=== PATIENT | male | born 1990 | race Caucasian/White ===

== ENCOUNTER 2018-05-01 16:53 | Emergency (ER) | payer SELFPAY ==
[2018-05-01 17:08] VITALS: BP 151/94; PULSE 84; RESP 16; TEMP 36.5; O2SAT 98
[2018-05-01] MEDS: Benzonatate 100 MG CAP PO (17:51)
[2018-05-01] MEDS: Albuterol/Ipratropium 3 ML UPD VIAL UPD (17:51)
--- NOTE | 2018-05-01 18:10 | NUR.NOTE ---
Nursing Note: Meds given as ordered, no acute resp distress. off unit at this time for CXR. will continue to monitor.
--- NOTE | 2018-05-01 18:12 | DI.RAD_ITS ---
SYMPTOM/DIAGNOSIS: COUGH, FEVER PA AND LATERAL CHEST: The heart is normal in size. The lungs are clear. The mediastinal structures and pleura appear intact. CONCLUSION: Normal chest.
--- NOTE | 2018-05-01 18:23 | DI.VRAD_ITS ---
EXAM: XR Chest, 2 Views EXAM DATE/TIME: 05/01/2018 5:44 PM CLINICAL HISTORY: 27 years old, male; Signs and symptoms; Cough and fever and shortness of breath; Patient HX: Productive cough, fever, and SOB x7 days. TECHNIQUE: XR of the chest, 2 views. COMPARISON: No relevant prior studies available. FINDINGS: Lungs: Unremarkable. No consolidation. Pleural space: Unremarkable. No pleural effusion. No pneumothorax. Heart/Mediastinum: Unremarkable. No cardiomegaly. Bones/joints: Unremarkable. IMPRESSION: No acute findings. Dictated and Authenticated by: Guerrero Roth MD. Ordering:ROBERT Goodman MD
--- NOTE | 2018-05-01 18:51 | W.ED.GENAD ---
Discharge Plan Disposition Patient Disposition: HOME Condition: Stable Discharge Details Chief Complaint: RespSymp Clinical Impression: Influenza, Pneumonia Primary Care Provider: None,None ED Provider: Rex Jimenez Home Meds and New Rx's Prescriptions: New benzonatate 200 mg capsule 200 mg PO TID PRN (Reason: cough) Qty: 30 RF: 0 doxycycline hyclate 100 mg tablet 100 mg PO BID Qty: 14 RF: 0 Discharge Instructions Instructions: Influenza (ED), Pneumonia (ED) Additional Instructions: Please stay well-hydrated and get plenty of rest during illness. Take medication as prescribed and follow-up with primary care provider if available otherwise return to emergency department for any new or significant worsening of symptom Stand Alone Forms: Work Release Referrals: Primary Care Provider [Outside] Discharge Data Discharge Date/Time-TO BE ENTERED AT DEPARTURE: 05/01/18 19:08 Medical Decision Making Patient presenting to the emergency department for chief complaint of flulike symptoms. Patient states that he has had symptoms since last Saturday and not improving and actually of the past 2 days feels worse. Patient has coarse breath sounds throughout but is not tachycardic, not hypoxic, and at this time afebrile. Given coarse breath sounds patient was given albuterol and Tessalon Perles to help with cough and chest x-ray was performed. Given duration of symptoms I do not feel that influenza testing is required as he does not meet criteria for medication but that there is concern of possible secondary pneumonia so chest x-ray was ordered. Tree was interpreted as negative and upon reassessment lung sounds have improved slightly but there are still some abnormal breath sounds in the lower bases. Given this patient was placed on doxycycline and prescribed Tessalon Perles for home use and encouraged to return for any new or worsening symptoms otherwise to follow-up with primary care as needed. After discussion of diagnosis and plan of care patient has no further needs, questions, or concerns and states clear understanding to return to the emergency department for any worsening symptoms. HPI General Mode of arrival: ambulatory. Date/Time Provider Initiated Documentation: 05/01/18 17:10. Limitations to Documentation: no limitations. Information obtained by: patient. History of Present Illness 27 year old M presents to the emergency department with the chief complaint of cold symptoms, described as moderate, with intensity rated at 7. Quality is described as aching (Generalized body), Patient started experiencing this week(s) (1) and it has been constant. No relieving factors improve symptom(s), No exacerbating factors reported . Patient notes no other symptoms.. Patient did receive the following treatments prior to arrival, none Related Data Home Medications Medication Instructions Recorded Confirmed benzonatate 200 mg PO TID PRN #30 cap 05/01/18 doxycycline hyclate 100 mg PO BID #14 tab 05/01/18 Previous Rx's Medication Instructions Recorded benzonatate 200 mg PO TID PRN #30 cap 05/01/18 doxycycline hyclate 100 mg PO BID #14 tab 05/01/18 Allergies Allergy/AdvReac Type Severity Reaction Status Date / Time monosodium glutamate AdvReac Mild runny nose Unverified 04/30/17 14:07 General Stated Complaint: RespSymp SUSI: 3 Review of Systems Constitutional Reports body ache(s), Reports chills, Reports fever(s), Reports headache(s) and Reports malaise Eyes Denies eye discharge ENT Reports as per HPI, Denies otalgia, Reports headache(s), Reports nasal congestion, Denies neck pain, Reports sinus pressure, Reports sore throat and Denies throat swelling Cardiovascular Denies chest pain and Denies dyspnea Respiratory Reports change in phlegm color, Reports cough, Reports pain with cough and Denies dyspnea Musculoskeletal Denies joint swelling and Denies neck pain Integumentary/Breasts Denies rash Neurologic Reports headache(s) Allergic/Immunologic Denies throat swelling [facility] Social History Smoking/Tobacco Use Status: Former Tobacco Use Exam Const General: cooperative, comfortable and no acute distress Orientation: alert and awake [facility] Head: normal to inspection, normocephalic and atraumatic Ears: hearing grossly normal bilaterally and TM's normal bilaterally General nose exam: external nose normal Face and sinus: no erythema and sinus tenderness ethmoid and maxillary Mouth: oral mucosae normal, no drooling, no muffled voice and no trismus Throat: posterior oropharynx normal Neck Neck: normal visual inspection, full ROM, no lymphadenopathy, no meningeal signs, trachea midline and supple Resp Effort & Inspection: normal respiratory effort, able to speak in complete sentences and cough Quality of cough: dry Auscultation: clear to auscultation bilaterally Cardio Rate: regular rate Rhythm: regular rhythm Heart Sounds: S1 normal, S2 normal, normal S1 and S2, no click, no gallops, no murmurs and no rubs Skin General skin exam: no rashes or lesions noted and dry skin (warm) Neuro General: alert, awake, oriented x3, gait normal and moves all extremities Cognition: normal cognition Speech: speech normal Course Vital Signs Temperature 36.5 C 05/01/18 17:08 Pulse 84 05/01/18 17:08 Respiratory Rate 16 05/01/18 17:08 Blood Pressure 151/94 H 05/01/18 17:08 Pulse Oximetry 98 05/01/18 17:08 Temperature 36.5 C 05/01/18 17:08 Pulse 84 05/01/18 17:08 Respiratory Rate 16 05/01/18 17:08 Respiratory Effort Non-Labored 05/01/18 18:09 Respiratory Depth Normal 05/01/18 18:09 Blood Pressure 151/94 H 05/01/18 17:08 Blood Pressure Position Sitting 05/01/18 17:08 Pulse Oximetry 98 05/01/18 17:08 Oxygen Delivery Method Room Air 05/01/18 17:08 Oxygen Flow Rate 0 05/01/18 17:08 Pain Level 7 05/01/18 17:08 Lab/Test Results Lab/Test Results: 05/01/18 17:00 Tonsil - Not Specified Streptococcus Screen (RADHA) - Pending POC Strep Test-CANDACE(Rapid) Start: 05/01/18 17:19 Freq: Status: Active Protocol: Document 05/01/18 17:19 TB (Rec: 05/01/18 17:19 TB [id number]) Strep test-CANDACE(Rapid)-POC POC-Strep test-CANDACE (Rapid) Negative POC-Strep test-CANDACE (Rapid) Negative
[2018-05-01] MEDS: Doxycycline Hyclate 100 MG CAP PO (19:05)
== END 2018-05-01 19:08 | disposition home or self-care (01) ==
PROVIDERS: Emergency Provider Nurse Practitioner Family
DX: J11.00 Influenza due to unidentified influenza virus with unspecified type of pneumonia (principal)
CPT/HCPCS: 87880; 94640; 99284; 71046; 87081; J7620

== ENCOUNTER 2020-10-21 20:22 | Outpatient (REF) | payer BC, SELFPAY ==
[2020-10-22 10:34] LABS: COVID-19 RT-PCR UVMMC Result Negative (Negative)
== END 2020-10-21 20:23 | disposition home or self-care (01) ==
LOC: LBN 20:22
PROVIDERS: Visit Provider Physician Assistant Medical
DX: J06.9 Acute upper respiratory infection, unspecified (principal); J02.9 Acute pharyngitis, unspecified; Z20.822 Contact with and (suspected) exposure to COVID-19
CPT/HCPCS: 87077; U0003; 87070

== ENCOUNTER 2023-03-29 20:14 | Emergency (ER) | payer SELFPAY ==
[2023-03-29 20:20] VITALS: BP 164/104; PULSE 98; RESP 16; TEMP 36.8; O2SAT 98
--- NOTE | 2023-03-29 20:50 | ED.GENADUL_ITS ---
Discharge Plan Disposition Patient Disposition: Home Discharge Details Clinical Impression: Gastritis Primary Care Provider: None,None ED Provider: Elijah Jensen Home Meds and New Rx's Prescriptions: New omeprazole 20 mg capsule,delayed release(DR/EC) 20 mg PO BID Qty: 30 0RF Discharge Instructions Instructions: Omeprazole (By mouth), Gastritis (ED) Additional Instructions: You were seen in the emergency department with your abdominal pain for months. This is likely some sort of minor GI bleed. Your hemoglobin is stable, your CT shows no acute abnormality in the abdomen, your hsuixe-eakkoo-teun vomitus is likely due to a peptic ulcer. I am starting you on a medication called omeprazole sent to [facility] in [place], take this twice daily for 30 days, I have put you on the list to arrange primary care, you need to follow- up with this is soon as possible, you need likely upper endoscopy and colonoscopy to check for any GI bleeding. He had a mild elevation of the lactate which could be due to dehydration, we have provided you 2 L of fluid and rechecked your lactate which improved. Referrals: [facility] [Provider Group] [facility] [Provider Group] Medical Decision Making This dictation utilizes cdist-op-eyid dictation software and may contain unedited grammatical errors. 32 y/o M presents to ED today with a chief complaint of abdominal pain for months, some bloody stools, coffee-ground emesis in the setting of heavy ETOH use. Onset and characteristics include months onset, denies dizziness, denies weakness, denies chest pain, no vomiting of bright red blood. Patients' medical history: negative, but doesn't have PCP. Family and social history: heavy ETOH use, substance abuse. Pertinent exam findings / vital signs include benign abdomen without peritoneal signs, mild L abdominal tenderness, lungs CTA, regular rate rhythm, stable vitals. Differential / pathologies of concern include GI Bleeding, PUD, Gastritis, Sepsis, Colitis/Diverticulitis, ETOH Abuse, Unlikely SBO. Diagnostic studies of: -CBC, CMP, ESR/CRP, lactate, UA, CT abdomen pelvis with contrast. -Mild leukocytosis of 12.7, mildly low potassium 3.2, will correct with high potassium diet on discharge, mild elevation of lactate 2.2 suspect poor p.o. intake/dehydration, given 1 L of fluid and will recheck -CT ABD/Pelvis shows no acute abnormality Interventions of: -1 L lactated Ringer's IV fluid, 40 mg IV Protonix. ED Course: Counseled the patient on the need to establish PCP and put him on the list to be seen, counseled him on following up with this soon as possible to get on list for upper endoscopy colonoscopy likely gastritis in the setting of long standing EtOH abuse. Hemoglobin stable, do not suspect any emergent pathology at this time, month-long course without acute deterioration. Findings not consistent with GI hemorrhage, Boerhaave Syndrome, Shakila Fallon Tear, Diverticulitis. Disposition of Gastritis. Patient verbalized understanding of the plan and return to ED criteria and engaged in shared decision making. Medical Records Medical records reviewed: Yes I reviewed the patient's medical records. Imaging Data Radiologic Study: Imaging: CT Scan Radiologist's impression: VRAD read shows no acute abdominal pathology Lab Data Lab results reviewed: Yes I reviewed the patient's lab results. HPI General Date/Time Provider Initiated Documentation: 03/29/23 20:38 . HPI Narrative: 32 year-old male presents to ED today by POV/ambulating with his spouse with a chief complaint of abdominal pain, bloody stools, nausea/vomiting with onset months-long. Quality described as occasional bloody TP, blood in toilet water, endorses some coffee-ground emesis, endorses heavy ETOH use, no radiation to chest pain, shortness of breath, fever, constipation, dysuria. Severity is described as 4-5/10. Palliating factors include nothing specific attempted. Provoking factors include nothing specific. Events leading up to the incident/Associated Symptoms: [ ]. Patient not anticoagulated. Related Data Home Medications Medication Instructions Recorded Confirmed omeprazole 20 mg capsule,delayed 20 mg PO BID gastritis #30 caps 03/29/23 release Previous Rx's Medication Instructions Recorded omeprazole 20 mg capsule,delayed 20 mg PO BID gastritis #30 caps 03/29/23 release Allergies Allergy/AdvReac Type Severity Reaction Status Date / Time monosodium glutamate AdvReac Mild runny nose Unverified 03/29/23 20:29 General Stated Complaint: Abd Prob SUSI: 3 Review of Systems All systems reviewed & are unremarkable except as noted in HPI and below PFSH All Active Problems (Updated 03/29/23 @ 22:39 by MILLIE Irby) Gastritis (Acute) Chemical insult, eye (Acute) Social History Smoking/Tobacco Use Status: Current every day Tobacco Type: cigarettes Smoking risk assessment performed?: Yes Drug use: Never Substance use type: marijuana Do you feel safe in your relationship?: Yes Exam Narrative Exam Narrative: GENERAL APPEARANCE: Well-nourished, non-toxic, awake and alert, atraumatic, no acute distress. SKIN: Warm, pink, dry, intact, without rashes/lesions/ulcerations. HEAD: Normocephalic, atraumatic, normal hair distribution for gender/age. EYES: Pupils PERRLA, EOMs intact without nystagmus, normal conjunctiva, no exudates on lids/lashes. ENT: Nares patent, no circumoral cyanosis, no facial swelling NECK: Supple, trachea midline, painless cervical ROM. LUNGS/CHEST: Lungs CTA bilaterally, non-labored respirations, normal A/P diameter, symmetrical expansion, no chest wall deformity HEART (CV/PV): Regular rate and rhythm without murmur, no peripheral edema, no JVD. ABDOMEN: Soft, non-distended, no guarding. MSK: Normal ROM, no swelling/deformity to bilateral UEs or LEs, moving all extremities without weakness, no cyanosis, spine midline without tenderness, normal curvature. NEURO: Mental Status AAOx4 - alert to person, place, time, events No facial droop, no forehead involvement. Motor: No focal weakness - strength 5/5 in bilateral UEs and LEs, proximal and distal, symmetric. Sensory: sensation intact to light touch globally. Gait normal: patient ambulated without ataxia into ED room. PSYCH: euthymic, cooperative, pleasant, appropriate speech Course Vital Signs Vital signs: Vital Signs Temperature 36.8 C 03/29/23 20:20 Pulse 98 H 03/29/23 20:20 Respiratory Rate 16 03/29/23 20:20 Blood Pressure 164/104 H 03/29/23 20:20 Pulse Oximetry 98 03/29/23 20:20 Temperature 36.8 C 03/29/23 20:20 Pulse 98 H 03/29/23 20:20 Respiratory Rate 16 03/29/23 20:20 Respiratory Effort Normal 03/29/23 20:26 Blood Pressure 164/104 H 03/29/23 20:20 Blood Pressure Position Sitting 03/29/23 20:20 Pulse Oximetry 98 03/29/23 20:20 Oxygen Delivery Method Room Air 03/29/23 20:20 Oxygen Flow Rate 0 03/29/23 20:20 Pain Level 5 03/29/23 20:20 PAWSS Have you Been Recently Intoxicated or Drunk Within the Last 30 days?: Yes Have you Ever Experienced Previous Episodes of Alcohol Withdrawal?: No Have you ever Experienced Withdrawal Seizures?: No Have you ever Experienced Delirium Tremens(DT)s?: No Have you ever undergone Alcohol Rehabilitation Treatment (i.e, inpt ot outpatient treatment programs)?: No Have you ever Experienced Blackouts?: No Have you ever Combined Alcohol with other Downers within the last 90 days?: No Have you ever Combined Alcohol with any other Substance of Abuse during the last 90 days?: No Positive Blood Alcohol level on Presentation? [PCS.BAL]: No Evidence of Increased Autonomic Activity (i.e. HR>120, tremor, sweating, agitation, nausea)?: No Result: 1
[2023-03-29 20:54] LABS: Abs Immature Grans 0.05 10^3/uL (0.0-0.06); Absolute Basophil Count 0.05 10^3/uL (0.0-0.2); Absolute Eosinophil Count 0.05 10^3/uL (0.0-0.7); Absolute Monocyte Count 0.84 10^3/uL (0.1-0.8); Basophils % 0.4; Eosinophils % 0.4; HCT 47.6 % (40.0-50.0); HGB 16.5 g/dL (13.5-17.5); Immature Grans % 0.4; Lymphocytes % 25.5; MCH 32.5 pg (27.0-33.0); MCHC 34.7 % (32.0-36.0); MCV 94 fL (80-95); MPV 9.2 fL (8.0-11.0); Monocytes % 6.6; Neutrophils % 66.7; Platelet Count 376 10^3/uL (130-400); RBC 5.08 10^6/uL (4.36-5.78); RDW 11.9 % (11.8-14.1); RDW-SD 41.4 fL; WBC 12.73 10^3/uL (4.4-10.8)
[2023-03-29] MEDS: Lactated Ringers 1,000 ML 1000 ML IV ×2 (20:54→22:54)
[2023-03-29] MEDS: Pantoprazole 40 MG VIAL IVP (20:54)
[2023-03-29 20:55] LABS: Absolute Lymphocyte Count 3.25 10^3/uL (1.2-3.4); Absolute Neutrophil Count 8.49 10^3/uL (1.2-6.7); Lactate 2.2 mmol/L (0.6-1.4)
[2023-03-29 20:57] LABS: ESR 4 mm/hr (0-15)
[2023-03-29 21:05] LABS: INR 1.1 (0.9-1.1); Prothrombin Time 10.6 sec (9.1-11.1)
[2023-03-29 21:09] LABS: ALT 32 U/L (16-63); AST 16 U/L (15-37); Albumin 4.3 g/dL (3.4-5.0); Alkaline Phosphatase 79 U/L (46-116); Anion Gap 9.9 mmol/L (3-11); BUN 7 mg/dL (7-18); Bilirubin, Total 0.4 mg/dL (0.2-1.0); CO2 26.1 mmol/L (21.0-32.0); CREATININE 1.1 mg/dL (0.70-1.30); Calcium 9.6 mg/dL (8.5-10.1); Chloride 103 mmol/L (98-107); Estimated GFR 90.34 (mL/min/1.73m2); Glucose 94 mg/dL (74-106); Lipase 19 U/L (16-77); Potassium 3.2 mmol/L (3.5-5.1); Sodium 139 mmol/L (136-145); Total Protein 8.1 g/dL (6.4-8.2)
[2023-03-29 21:10] LABS: C-Reactive Protein < 0.05 mg/dL (0.0-0.3)
[2023-03-29 21:23] LABS: Bilirubin Negative (Negative); Blood Trace-intact (Negative); Clarity Clear (Clear); Glucose Negative (Negative); Ketones Negative (Negative); Leukocyte Esterase Negative (Negative); Nitrite Negative (Negative); pH 6.5 (5-8)
--- NOTE | 2023-03-29 21:30 | DI.CT_ITS ---
Exam(s) CT ABDOMEN PELVIS W EXAM: CT ABDOMEN PELVIS W CLINICAL HISTORY: abdominal pain, elevated lactate TECHNIQUE: Imaging Protocol: Axial computed tomography images with coronal and sagittal reformatted images were created and reviewed CONTRAST MATERIAL: Intravenous: Omnipaque 350 Contrast volume:100 mL Oral: No COMPARISON: Comparison is made with prior examinations. FINDINGS: ABDOMEN: Lung Bases: Normal where visualized. Liver: Normal density. No measurable mass. Portal, Superior Mesenteric, and Splenic Veins: Unremarkable. Gallbladder and Biliary Tract: No radiodense calculus or dilation. Pancreas: Normal density, no abnormal calcifications or inflammatory process. Spleen: Normal. Adrenals: No masses seen. Kidneys: Normal size, contour and axis. No radiodense stones or obstructive uropathy. No masses seen. Abdominal Aorta: Abdominal portion non-dilated. Mild atherosclerosis. Bowel: No obstruction or bowel wall thickening. Appendix is unremarkable. Peritoneal Cavity: No ascites, collection or mesenteric inflammatory response. No free air. Lymph Nodes: Within normal limits. Bones: Within normal limits for the patient's age. There is L5 spondylolysis and grade 1 spondylolis thesis of L5 on S1. Soft Tissues: There is a small fat containing umbilical hernia. PELVIS: Bladder: No significant urinary bladder wall thickening is seen. The bladder is incompletely distend ed limiting evaluation. Reproductive Organs: Unremarkable as visualized. Lymph Nodes: Within normal limits. Bones: Within normal limits for the patient's age. IMPRESSION: No acute abdominal or pelvic process. RADIATION DOSE DELIVERED: Total DLP DATA REPOSITORY: All CT scans at this facility are submitted to the National Radiology Data Registry (NRDR) Dose Index Registry (DIR) with the [employer] (ACR). RADIATION OPTIMIZATION: All CT scans at this facility use at least one of these dose optimization te chniques: automated exposure control; mA and/or kV adjustment per patient size (includes targeted exa ms where dose is matched to clinical indication); or iterative reconstruction.
[2023-03-29 21:33] LABS: Epithelial Cells Rare HPF (Negative); RBC 0-2 HPF (0-2); WBC Negative HPF (0-5)
[2023-03-29 21:34] LABS: Bacteria Rare HPF (Negative); C & S Indicated? No; Casts Negative LPF (Negative); Crystals Negative HPF (Negative); Mucus Moderate (Negative)
[2023-03-29] MEDS: Omnipaque 350 MG/ML 100 ML BTL IJ (21:52)
[2023-03-29] MEDS: Normal Saline - Diluent 50 ML VIAL IV (21:53)
[2023-03-29] MEDS: Normal Saline Flush 10 ML SYR IVP (21:54)
--- NOTE | 2023-03-29 22:20 | DI.VRAD_ITS ---
PROCEDURE INFORMATION: Exam: CT Abdomen And Pelvis With Contrast Exam date and time: 03/29/2023 9:50 PM Age: 32 years old Clinical indication: Abdominal pain; Generalized; Additional info: Abd pain, elevated lactate TECHNIQUE: Imaging protocol: Computed tomography of the abdomen and pelvis with contrast. COMPARISON: CT RENAL COLIC WO CONTRAST 04/21/2016 2:09 PM FINDINGS: Liver: Normal. No mass. Gallbladder and bile ducts: Normal. No calcified stones. No ductal dilation. Pancreas: Unremarkable. Spleen: Normal. Adrenal glands: Normal. No mass. Kidneys and ureters: Normal. No hydronephrosis. Stomach and bowel: Unremarkable. No bowel wall thickening or intestinal obstruction. Appendix: Normal appendix. Intraperitoneal space: Unremarkable. No pneumoperitoneum. No abscess. Vasculature: Unremarkable. Lymph nodes: Unremarkable. Urinary bladder: Unremarkable as visualized. Reproductive: Unremarkable as visualized. Bones/joints: Chronic bilateral L5 pars defects with grade 2 anterolisthesis of L5-S1. Soft tissues: Unremarkable. IMPRESSION: No acute findings. Dictated and Authenticated by: Pérez Brewer MD. Ordering:NICOLE Nava MD
[2023-03-29 22:55] LABS: Lactate 1.1 mmol/L (0.6-1.4)
--- NOTE | 2023-03-29 23:04 | NUR.NOTE ---
Pt placed on care management referral list to set up primary care t be seen alba or earliest appt per ED Dr. Jensen.
[2023-03-29 23:30] VITALS: BP 133/97; PULSE 72; RESP 16; TEMP 37; O2SAT 97
[2023-03-29 23:31] VITALS: BP 133/97; PULSE 72; RESP 16; TEMP 37; O2SAT 97
== END 2023-03-29 23:23 | disposition home or self-care (01) ==
PROVIDERS: Emergency Provider Physician Assistant
DX: K29.70 Gastritis, unspecified, without bleeding (principal); F10.10 Alcohol abuse, uncomplicated; F17.210 Nicotine dependence, cigarettes, uncomplicated
CPT/HCPCS: 36415; 80053; 83690; 85652; 96361; 96375; 99285; 74177; 81003; 81015; 83605; 83735; 85025; 85610; 86140; 99284; J3490

== ENCOUNTER 2023-04-12 11:53 | Day surgery (SDC) | payer SELFPAY ==
--- NOTE | 2023-04-11 14:23 | W.PM.DSUDISC ---
Date of service: 04/12/23 Time of Service: 14:01 Discharge Plan Disposition Patient Disposition: Home Condition: Good Discharge Details Reason For Visit: Stomach and colon scope Attending Provider: Kelly Worthy Primary Care Provider: None,None Home Meds and New Rx's Prescriptions: Continued omeprazole 20 mg capsule,delayed release(DR/EC) 20 mg PO BID Qty: 30 0RF Discontinued bisacodyl [Dulcolax (bisacodyl)] 5 mg tablet,delayed release (DR/EC) 5 mg PO ONCE Qty: 4 0RF Rx Instructions: Take per colonoscopy instructions provided by ordering providers office polyethylene glycol 3350 17 gram/dose powder 17 g PO ONCE Qty: 238 0RF Rx Instructions: Take per colonoscopy instructions provided by ordering providers office Discharge Instructions Instructions: Hiatal Hernia (GEN), Gastritis (GEN), Hemorrhoids (GEN), Diverticulosis (GEN), Colorectal Polyps (GEN) Additional Instructions: DSU Colonoscopy Post-Op Instructions Instructions for Everyone who is given Anesthesia: For your safety, please do the following for the next twenty-four (24) hours: *Do Not operate a motor vehicle (car, truck, motorcycle, etc.) *Do Not drink alcoholic beverages or use any recreational drugs for the first 24 hours or while taking pain medications. The medications in your body may have a reaction that can be dangerous. *Do Not make any important decisions or sign any important papers. Findings: Duodenitis/gastritis/esophagitis Hiatal hernia with GERD Diverticular disease Colon polyps Follow up: My office will send you a letter in 2 to 3 weeks time with the results of the biopsy and when we want you to repeat the colonoscopy, most likely in 7 years time -Continue with lifestyle modifications: no alcohol, tobacco products, Aspirin or NSAID's (ibuprofen, Motrin, Naprosyn, aleve, etc), soda pop/any carbonated beverages, caffeine (including tea & chocolate), and acidic foods, (tomatoes, citrus, onions, peppermints) spicy or fried/fatty foods. Do not lie down for 30 minutes after eating, and do not eat 2 hours prior to bedtime. Avoid wearing tight fitting clothing/ belts -stop smoking any combustible agents and alcohol use 1. No lifting over 20 pounds or strenuous activity for the first 24 hours after your procedure. After 24 hours there are no restrictions on your activity but you may feel fatigued for a few days. 2. After you arrive home you may have a light meal and return to your normal diet as you can tolerate it without feeling sick to your stomach. 3. You may have a bloated, gaseous feeling in your belly (abdomen) after a colonoscopy. Passing gas and belching will help. Walking or lying down on your left side with your knees flexed may relieve the discomfort. Call the office at [phone] (Office) or [phone] (Hospital) right away if you notice any of the following: a.Vomiting of blood or ?coffee ground stools?. b.Rectal bleeding 1Tbsp, blood clots or continuous bleeding. c.Severe belly (abdominal) pain. d.A hard distended belly (abdomen) and an inability to pass gas. 4. Please don?t expect to have a normal BM (bowel movement) for 2-3 days after your procedure. 5. If there are questions regarding the findings of your procedure, please contact your doctor 6. If you are unable to contact your doctor with a problem, contact the hospital at [phone]. 7. Continue all your regular medications unless directed otherwise. I understand the above instructions and have no questions. Signature of Patient or Adult Escort Name of Responsible Adult Escort Signature of Nurse Date/Time Activity:: see above Diet:: see above Discharge Orders Discharge Orders: Discharge Order (Routine); Ordered 04/12/23 Ordered By: Kelly Worthy DS: Diagnosis Discharge Diagnosis (1) Gastritis: Status: Acute (2) Duodenitis: Status: Acute (3) Esophagitis: Status: Acute (4) Hiatal hernia with GERD: Status: Acute (5) Diverticular disease of large intestine: Status: Acute (6) Internal hemorrhoids with complication: Status: Acute (7) Adenomatous colon polyp: Status: Acute (8) Smoker: Status: Acute (9) Marijuana smoker: Status: Acute (10) Alcohol use disorder: Status: Acute
--- NOTE | 2023-04-11 14:25 | W.COLOREPORT ---
Date of service: 04/12/23 Time of Service: 14:14 Colonoscopy Report Date of procedure: 04/12/23 Pre-op diagnosis general: gi bleed Post-op diagnosis procedure note: other (Internal hemorrhoids/diverticular disease-buckner/adenomatous polyp) Surgeon: Kelly Worthy Anesthesia Type: General:No Airway Estimated blood loss (mL): 1 Pathology: other Complications: None Disposition: same day Prep: Miralax/Dulcolax Retraction Time: 10 Procedure Description: After informed consent was obtained the patient was taken to the procedure room and placed in a left decubitous position. Monitors were applied and a time out was done. The patients name, date of , procedure, allergies to medications and metal in their body was reviewed. The patient was then sedated. Once sedated and comfortable a rectal exam was done. External exam was normal. Internal exam revealed a normal sphincter tone and no palpable masses. The prostate normal. The scope was then introduced and retrofelexed. Grade 2 internal hemorrhoids of all 3 columns were identified. The scope was then advanced to the cecum without difficulty. The TI and appendiceal orifice were identified. The prep was BBPS 2 in all segments for a total of 8. The scope was then slowly retracted over 10 minutes back into the rectum. He has a 0.75 cm pedunculated polyp at 80 cm. This is removed with a cold biopsy forcep. All specimen is retrieved and no bleeding is noted. He has minor diverticula that do extend all the way over to the cecum. There are no signs of active bleeding or infection. The scope was removed and the patient was woken up and taken back to Same day surgery in stable condition. The patient tolerated the procedure well and there were no immediate complications. Follow up: The patient should follow up in 5-7, path pending, years unless they develop changes in bowel habits or other new gastrointestinal complaints.
--- NOTE | 2023-04-11 14:26 | ENDO_ITS ---
Date of service: 04/12/23 Time of Service: 14:10 Endoscopy Report DATE OF PROCEDURE: 04/12/23 PRE-OP DIAGNOSIS: gi bleed POST-OP DIAGNOSIS: other (Duodenitis/gastritis/esophagitis/hiatal hernia) SURGEON: Kelly Worthy ANESTHESIA TYPE: General:No Airway ESTIMATED BLOOD LOSS: 1 PATHOLOGY: other COMPLICATIONS: None DISPOSITION: same day PREP: Miralax/Dulcolax PROCEDURE DESCRIPTION: After informed consent was obtained the patient was take to the procedure room and placed in a supine position. Monitors were applied and a time out was done. The patients name, date of , procedure type, allergies to medications and metal in their body was reviewed. A bite block was placed and the patient was sedated. Once sedated and comfortable the gastroscope was advanced through the oropharynx which was grossly normal into the esophagus. The proximal and mid- esophagus were normal. In the distal esophagus there was no: Esophageal varices/diverticula/stricture. There is some mild esophagitis the scope was advanced into the stomach and through the pylorus into the 3rd portion of the duodenum. The duodenum was noted to be mild duodenitis. Biopsies were done, all specimens are retrieved and no bleeding is noted. The scope was retracted back into the stomach and biopsies were done to rule out H. pylori. There were no ulcers. There is a mild diffuse gastritis in the distal one third of the stomach. The scope was retroflexed. The cardia and fundus were noted to be normal. There 2 cm sliding-type hiatal hernia noted. The scope was retracted back into the esophagus and biopsies were done of the GE junction to rule out Wheeler's. The Z line was irregular. The GE junction was at 38 cm. The scope was removed and the patient was woken up and taken back to [facility] in stable condition.
[2023-04-12 12:00] VITALS: BP 152/94; PULSE 92; RESP 20; TEMP 37.1; O2SAT 98
--- NOTE | 2023-04-12 12:34 | ANES.PREOP_ITS ---
General Info Date of Service Date Performed: 04/12/23 Height: 5 ft 7 in Weight: 82.1 kg Body Mass Index (BMI): 28.3 Surgical Procedure: Operation Date: 04/12/23 12:05 Proposed Procedure Side Surgeon p Colonoscopy/Gastroscopy Kelly Worthy, Meds Allergies and Home Medications Allergies Allergy/AdvReac Type Severity Reaction Status Date / Time monosodium glutamate AdvReac Mild runny nose Unverified 04/12/23 12:06 Home Medication Medication Instructions Recorded omeprazole 20 mg capsule,delayed 20 mg PO BID gastritis #30 caps 03/29/23 release Current Visit Medications: Current Medications Generic Name Dose Route Start Last Admin Trade Name Freq PRN Reason Stop Dose Admin Hyoscyamine Sulfate 0.125 mg 04/12/23 08:20 Hyoscyamine 0.125 Mg Sl/Oral/Chew SL 05/12/23 08:19 DIRECTED PRN Ringer's Solution 1,000 mls @ 80 mls/hr 04/12/23 06:00 IV 05/11/23 23:59 INFUSION [facility] [place] IV Miscellaneous Supplies 1 each 04/12/23 06:00 Iv Access IV 05/11/23 23:59 DIRECTED LEONORA Ondansetron HCl 4 mg 04/12/23 08:20 Ondansetron 4 Mg/2 Ml Vial IVP 05/12/23 08:19 Q4H PRN PRN Nausea / Vomiting Sodium Chloride 0 ml 04/12/23 06:00 Normal Saline Flush 10 Ml Syr IV 05/11/23 23:59 PRN PRN Sodium Chloride 0 ml 04/12/23 06:00 Normal Saline 10 Ml Vial IJ 05/11/23 23:59 DIRECTED PRN Sterile Water 0 ml 04/12/23 06:00 Water,Injection,Sterile 10 Ml Vial IJ 05/11/23 23:59 DIRECTED PRN PFSH Active Problems Active Problems: Problem Status Onset Code Gastritis K29.70 Chemical insult, eye T26.40XA Medical History Medical History Comments:: Pt reports THC use weekly, has cut back on alcohol since ER visit; reports runny nose occasionally bring outside Surgical History Surgical History History of surgery of head Pt reports 10 years old, tick embedded for over 2months requiring surgical intervention for removal, no issues with anesthesia Tobacco Smoking/Tobacco Use Status: Current every day Tobacco Type: cigarettes Smoking packs per day: 1 Smoking cigarettes per day: 20.0 Years smoked: 15 Smoking pack- years: 15.00 Alcohol Alcohol Intake: current Alcohol intake frequency: a few times a week Alcohol type: beer and hard liquor Details: has cut back on alcohol since 03/29/23, 2 beers 2 days ago Substance Use Substance use: Daily Substance use type: marijuana Details: marijuana use this am, smoked 04/12/23, daily user alcohol t-2, beer Vital Signs and Lab Results Vital Signs Most Recent Vital Signs in EMR: Most Recent Vital Signs Temp Pulse Resp BP Pulse Ox 37.1 C 92 H 20 152/94 H 98 04/12/23 12:00 04/12/23 12:00 04/12/23 12:00 04/12/23 12:00 04/12/23 12:00 Lab Results 04/12/23 09:00 Blood Type / Crossmatch: 2 No Data to Display Complete Blood Count: 2 White Blood Count 12.73 10^3/uL (4.4-10.8) H 03/29/23 20:34 Red Blood Count 5.08 10^6/uL (4.36-5.78) 03/29/23 20:34 Hemoglobin 16.5 g/dL (13.5-17.5) 03/29/23 20:34 Hematocrit 47.6 % (40.0-50.0) 03/29/23 20:34 Platelet Count 376 10^3/uL (130-400) 03/29/23 20:34 Venous Blood Lactate 1.1 mmol/L (0.6-1.4) 03/29/23 22:52 Complete Metabolic Panel: 2 Sodium 139 mmol/L (136-145) 03/29/23 20:34 Potassium 3.2 mmol/L (3.5-5.1) L 03/29/23 20:34 Chloride 103 mmol/L (98-107) 03/29/23 20:34 Carbon Dioxide 26.1 mmol/L (21.0-32.0) 03/29/23 20:34 BUN 7 mg/dL (7-18) 03/29/23 20:34 Creatinine 1.1 mg/dL (0.70-1.30) 03/29/23 20:34 Est GFR (CKD-EPI 2020) 90.34 (mL/min/1.73m2) 03/29/23 20:34 Magnesium 2.0 mg/dL (1.8-2.4) 03/29/23 20:34 Calcium 9.6 mg/dL (8.5-10.1) 03/29/23 20:34 Albumin 4.3 g/dL (3.4-5.0) 03/29/23 20:34 Glucose 94 mg/dL (74-106) 03/29/23 20:34 C-Reactive Protein < 0.05 mg/dL (0.0-0.3) 03/29/23 20:34 Liver Function Panel: 2 Alanine Aminotransferase (ALT/SGPT) 32 U/L (16-63) 03/29/23 20: 34 Aspartate Amino Transf (AST/SGOT) 16 U/L (15-37) 03/29/23 20:34 Coagulation Panel: 2 INR International Normalized Ratio 1.1 (0.9-1.1) 03/29/23 20:3 4 Prothrombin Time 10.6 sec (9.1-11.1) 03/29/23 20:34 Cardiac Panel: 2 No Data to Display Arterial Blood Gas: 2 No Data to Display Venous Blood Gas: 2 No Data to Display Pancreas Panel: 2 Lipase 19 U/L (16-77) 03/29/23 20:34 Thyroid Panel: 2 No Data to Display Infectious Disease: 2 No Data to Display Blood Cultures: 2 No Data to Display Toxicology Panel: 2 No Data to Display Anesthesia Assessment and Plan Anesthesia History Personal History: No History of Anesthesia Complications Family History: No Family History of Anesthesia Complications Exercise Tolerance Exercise Tolerance: Metabolic Equivalents>4 Pertinent Negatives Pertinent Negatives: No Symptoms of GERD, No Major Cardiovascular Symptoms or Complaints, No Major Pulmonary Symptoms or Complaints and No History of CVA/TIA Cardiac & Pulmonary Exam Cardiac Exam: Normal S1/S2 Heart Sounds Pulmonary Exam: Clear Bilateral Breath Sounds Implantable Cardiac Device Does patient have a Pacemaker or an ICD?: No Airway Exam Known Difficult Airway: No Mallampati Class: 2 Mouth Opening: Normal (> 3cm) Thyromental Distance: Greater than 3 cm Neck Range of Motion: Full ROM Neck Circumference: Normal Teeth Condition: Normal Dentition ASA Classification ASA Score: ASA 2 Emergency Case?: No NPO Status NPO Status: NPO Clears >2 hours, Solids >8 hours Anesthesia Plan Resuscitation Status: Full Code Anesthesia Technique: General Anesthesia Airway Planned: Natural Airway Monitors Used: Standard Monitors Preoperative Comments:: Extreme anxiety and needle phobia. MKO tabs x 2 at 1245 after interviewed by surgeon, hand scraper and myself.
[2023-04-12 12:42] VITALS: BMI 28.3
[2023-04-12] MEDS: Lactated Ringers 1,000 ML 80 ML IV (13:05)
[2023-04-12 13:16] LABS: Abs Immature Grans 0.06 10^3/uL (0.0-0.06); Absolute Basophil Count 0.05 10^3/uL (0.0-0.2); Absolute Eosinophil Count 0.11 10^3/uL (0.0-0.7); Absolute Lymphocyte Count 2.51 10^3/uL (1.2-3.4); Absolute Monocyte Count 0.82 10^3/uL (0.1-0.8); Basophils % 0.5; Eosinophils % 1.1; HCT 43.8 % (40.0-50.0); HGB 14.7 g/dL (13.5-17.5); Immature Grans % 0.6; Lymphocytes % 25.5; MCH 31.9 pg (27.0-33.0); MCHC 33.6 % (32.0-36.0); MCV 95 fL (80-95); Monocytes % 8.3; Platelet Count 326 10^3/uL (130-400); RBC 4.61 10^6/uL (4.36-5.78); RDW 11.9 % (11.8-14.1); RDW-SD 41.6 fL; WBC 9.85 10^3/uL (4.4-10.8)
--- NOTE | 2023-04-12 13:16 | BOWEL_PTH ---
PATIENT: Emigdio Trejo LOC: [facility] U#:[id number] AGE/SX: 32/M ROOM: RE04/12/[address]: Kelly Worthy : 1990 BED: DIS: 04/12/2023 SPEC #: [id number] RECD: 04/12/23 17:57 STATUS: CHRIS RE #: [id number] SIRIA: 04/12/23 13:[address]: Kelly Worthy DEPT: Surgical Specimen RECD BY: Anitha Hearn ENTERED: 04/12/23 17:59 SP TYPE: Bowel OTHR DR: Ayanna Llanos MD Tissues: 1 - BIOPSY BOWEL 2 - BIOPSY BOWEL 3 - STOMACH BIOPSY 4 - STOMACH BIOPSY 5 - ESOPHAGUS BIOPSY 6 - ESOPHAGUS BIOPSY 7 - BIOPSY BOWEL Procedures: GROSS AND MICRO LEVEL 4 Comments: [id number]
[2023-04-12 13:51] LABS: Ferritin 142 ng/mL (26-388); Vitamin B12 435 pg/mL (193-986)
[2023-04-12 13:52] VITALS: BP 120/84; PULSE 69; RESP 16; TEMP 36.4; O2SAT 93
[2023-04-12 14:22] VITALS: BP 117/79; PULSE 69; RESP 16; TEMP 36.6; O2SAT 97
--- NOTE | 2023-04-12 14:39 | W.ANESPOSTOP ---
Postoperative Evaluation Date, Time and Location Date Performed: 04/12/23 Time Performed: 14:39 Patient Location: Day Surgery Unit Vital Signs Most Recent Imported Vital Signs: Most Recent Vital Signs Temp Pulse Resp BP Pulse Ox 36.6 C 69 16 117/79 97 04/12/23 14:22 04/12/23 14:22 04/12/23 14:22 04/12/23 14:22 04/12/23 14:22 Pain Score Most Recent Pain Score: Most Recent Pain Score Pain Level 0 04/12/23 14:22 Assessment Mental Status: Awake (Alert & Oriented to Patient Baseline) Airway and Respiratory Function: Patent airway with normal (patient baseline) respiratory exam Cardiovascular Function: Hemodynamically Stable Hydration Status: Adequately Hydrated Nausea & Vomiting: No Nausea or Vomiting Pain: Pt. Denies Any Pain Peripheral Nerve Block: Patient did not receive a nerve block
== END 2023-04-12 15:20 | disposition home or self-care (01) ==
LOC: SUR 11:54
PROVIDERS: Visit Provider Surgery
PROC: (CPT 45380; principal; 2023-04-12 12:00)
DX: K29.70 Gastritis, unspecified, without bleeding (principal); K29.80 Duodenitis without bleeding; K20.90 Esophagitis, unspecified without bleeding; K21.9 Gastro-esophageal reflux disease without esophagitis; K63.5 Polyp of colon; K57.30 Diverticulosis of large intestine without perforation or abscess without bleeding; K64.1 Second degree hemorrhoids; F17.200 Nicotine dependence, unspecified, uncomplicated; F12.90 Cannabis use, unspecified, uncomplicated; F10.90 Alcohol use, unspecified, uncomplicated
CPT/HCPCS: 45380; 43239; 88305; 82607; 82728; 82746; 85025; J2001

== ENCOUNTER 2023-12-11 07:35 | Emergency (ER) | payer OTHER, SELFPAY ==
[2023-12-11 07:37] VITALS: BP 140/89; PULSE 90; RESP 17; TEMP 36.5; O2SAT 99
--- NOTE | 2023-12-11 08:00 | DI.RAD_ITS ---
Exam(s) XR SHOULDER RT COMPLETE 2+V EXAM: XR SHOULDER RT COMPLETE 2+V CLINICAL HISTORY: Right shoulder pain. TECHNIQUE: 2D digital imaging was performed. COMPARISON: No exams were available for comparison FINDINGS: Five views There is no evidence of fracture or dislocation normal soft tissue calcifications. Subacromial space appears unremarkable. There are no degenerative changes in the glenohumeral and AC joints. Bone de nsity normal. No osseous lesions. IMPRESSION: No significant radiographic findings in the shoulder. DATA REPOSITORY: RADIATION DOSE DELIVERED:
--- NOTE | 2023-12-11 08:21 | W.ED.GENAD ---
Discharge Plan Disposition Patient Disposition: Home Condition: Stable Discharge Details Clinical Impression: Overuse syndrome of shoulder, Impingement syndrome of right shoulder region Primary Care Provider: Unknown,Unknown ED Provider: Iqra Galeano Home Meds and New Rx's Prescriptions: New diclofenac sodium 1 % gel 2 g topical QID PRN (Reason: joint pain) Qty: 100 0RF Rx Instructions: apply to single elbow, wrist or hand; for hand includes palm/fingers/back of hand lidocaine 5 % adhesive patch,medicated 1 patch topical DAILY Qty: 15 0RF Rx Instructions: leave on most painful area for up to 12 hrs Discharge Instructions Instructions: Shoulder Impingement (DC), Shoulder Sprain ED Additional Instructions: At this time x-rays are within normal limits however does appear you have some bone spurring noted to the AC joint. This could be from overuse injury. Please follow-up with your place of employment physical therapist as discussed. Take the diclofenac gel as prescribed and lidocaine patches. Please take Tylenol or Ibuprofen with food every 4-6 hours as needed for pain and swelling. Alternate ice and heat. Follow up with primary care provider or orthopedics in 7-10 days. Return to ED sooner if any worsening or concerns. Stand Alone Forms: Physical Therapy Referral, Work Release Referrals: Dash Castro PA [[employer]] - 1 week HPI General Mode of arrival: ambulatory. Date/Time Provider Initiated Documentation: 12/11/23 07:43. Limitations to Documentation: no limitations. Information obtained by: patient, RN notes reviewed and old records reviewed. HPI Narrative: 33-year-old male presents to ER chief complaint shoulder pain she has been ongoing for the last couple of weeks. Now worsening. 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 He reports that he was seen by PCP a couple weeks ago. Has not had recent imaging. He reports that now he has had some swelling develop, does have small bump noted to the anterior portion of his shoulder. This is tender with palpation. Distal CMS is intact. No other associated symptoms or concerns denies any neck pain chest pain does have increased tenderness and pressure with abduction. Related Data Home Medications ?Medication ?Instructions ?Recorded ?Confirmed diclofenac sodium 1 % topical gel 2 g topical QID PRN joint pain 12/11/23 #100 grams lidocaine 5 % topical patch 1 patch topical DAILY #15 ea 12/11/23 Previous Rx's ?Medication ?Instructions ?Recorded diclofenac sodium 1 % topical gel 2 g topical QID PRN joint pain 12/11/23 #100 grams lidocaine 5 % topical patch 1 patch topical DAILY #15 ea 12/11/23 Allergies Allergy/AdvReac Type Severity Reaction Status Date / Time monosodium glutamate AdvReac Mild runny nose Unverified 12/11/23 07:39 General Stated Complaint: Orthopedic SUSI: 4 Review of Systems All systems reviewed & are unremarkable except as noted in HPI and below Exam Extrem General: normal to inspection Right upper extremity: normal capillary refill, shoulder/upper arm Details: tenderness Location: of the A-C joint, swelling and abnormal ROM Details: pain with active ROM Details: in ABduction and in extension; no abrasions, no lacerations, no ecchymosis and no unusual warmth and elbow/forearm Details: normal to inspection; no edema Course Vital Signs Vital signs: Vital Signs Temperature 36.5 C 12/11/23 07:37 Pulse 90 12/11/23 07:37 Respiratory Rate 17 12/11/23 07:37 Blood Pressure 140/89 12/11/23 07:37 Pulse Oximetry 99 12/11/23 07:37 Temperature 36.5 C 12/11/23 07:37 Temperature Source Temporal Artery Scan 12/11/23 07:37 Pulse 90 12/11/23 07:37 Respiratory Rate 17 12/11/23 07:37 Respiratory Effort Normal 12/11/23 07:39 Blood Pressure 140/89 12/11/23 07:37 Blood Pressure Position Sitting 12/11/23 07:37 Pulse Oximetry 99 12/11/23 07:37 Oxygen Delivery Method Room Air 12/11/23 07:37 Oxygen Flow Rate 0 12/11/23 07:37 Pain Level 5 12/11/23 07:51 Medical Decision Making 33-year-old male presents to ER chief complaint shoulder pain she has been ongoing for the last couple of weeks. Now worsening. 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 He reports that he was seen by PCP a couple weeks ago. Has not had recent imaging. He reports that now he has had some swelling develop, does have small bump noted to the anterior portion of his shoulder. This is tender with palpation. Distal CMS is intact. No other associated symptoms or concerns denies any neck pain chest pain does have increased tenderness and pressure with abduction. X-ray right shoulder ordered. Differential diagnosis includes but not limited to AC joint dislocation, rotator cuff tear, sprain, overuse injury. X-ray results within normal limits as noted below. However, I am questioning some possible bone spurring around the AC joint. Discussed home care and follow-up care with patient he does have access to physical therapy at his place of employment. Given the lidocaine patch here instructed on Tylenol ibuprofen ice and follow-up care with PCP and/or Ortho if no improvement. He verbalized understanding. A work note was filled out for light duty he reports that he is already on light duty I did fill out his form from his employer at patient's request. This text was generated using [employer]ura[employer] system, please disregard any oddities of phrase or misspellings. Imaging Data Radiologic Study: Imaging: X-Ray Radiologist's impression: EXAM: XR SHOULDER RT COMPLETE 2+V CLINICAL HISTORY: Right shoulder pain. TECHNIQUE: 2D digital imaging was performed. COMPARISON: No exams were available for comparison FINDINGS: Five views There is no evidence of fracture or dislocation normal soft tissue calcifications. Subacromial space appears unremarkable. There are no degenerative changes in the glenohumeral and AC joints. Bone density normal. No osseous lesions. IMPRESSION: No significant radiographic findings in the shoulder. Quality:SDOH Health Related Social Needs: No Data to Display PFSH All Active Problems (Updated 12/11/23 @ 09:34 by Iqra Galeano NP) Overuse syndrome of shoulder (Acute) Impingement syndrome of right shoulder region (Acute) Hyperplastic colon polyp (Acute ~04/12/23) Alcohol use disorder (Acute) Marijuana smoker (Acute) Smoker (Acute) Adenomatous colon polyp (Acute) Internal hemorrhoids with complication (Acute) bleeding Diverticular disease of large intestine (Acute) Lees diverticulosis Hiatal hernia with GERD (Acute) 2 cm sliding Esophagitis (Acute) Duodenitis (Acute) Chemical insult, eye (Acute) Surgical History History of esophagogastroduodenoscopy (~04/2023) History of colonoscopy (~04/2023) History of surgery of head Pt reports 10 years old, tick embedded for over 2months requiring surgical intervention for removal, no issues with anesthesia Social History Smoking/Tobacco Use Status: Current every day Tobacco Type: cigarettes Smoking packs per day: 1 Smoking cigarettes per day: 20.0 Years smoked: 15 Smoking pack-years: 15.00 Quit status: not considering quitting Smoking risk assessment performed?: Yes Alcohol Intake: current Alcohol Intake frequency: a few times a week Alcohol type: beer and hard liquor Details: has cut back on alcohol since 03/29/23, 2 beers 2 days ago Drug use: Daily Substance use type: marijuana Details: marijuana use this am, smoked 04/12/23, daily user alcohol t-2, beer Housing: apartment Do you feel safe at home: Yes Do you feel safe in your relationship?: Yes Additional Social history: unable to assess privately, 04/12/23 PAWSS Have you Been Recently Intoxicated or Drunk Within the Last 30 days?: No Have you Ever Experienced Previous Episodes of Alcohol Withdrawal?: No Have you ever Experienced Withdrawal Seizures?: No Have you ever Experienced Delirium Tremens(DT)s?: No Have you ever undergone Alcohol Rehabilitation Treatment (i.e, inpt ot outpatient treatment programs)?: No Have you ever Experienced Blackouts?: No Have you ever Combined Alcohol with other Downers within the last 90 days?: No Have you ever Combined Alcohol with any other Substance of Abuse during the last 90 days?: No Result: 0
[2023-12-11] MEDS: Lidocaine 5% Patch 1 PATCH TP (09:45)
[2023-12-11 10:02] VITALS: BP 140/89; PULSE 90; RESP 17; TEMP 36.5; O2SAT 99
== END 2023-12-11 10:02 | disposition home or self-care (01) ==
PROVIDERS: Emergency Provider Registered Nurse Emergency
DX: M70.821 Other soft tissue disorders related to use, overuse and pressure, right upper arm (principal); M75.41 Impingement syndrome of right shoulder; F17.210 Nicotine dependence, cigarettes, uncomplicated
CPT/HCPCS: 99283; 73030

== ENCOUNTER 2024-01-27 07:40 | Emergency (ER) | payer OTHER, SELFPAY ==
[2024-01-27 07:47] VITALS: BP 159/97; PULSE 88; RESP 18; O2SAT 99
--- NOTE | 2024-01-27 08:10 | DI.RAD_ITS ---
Exam(s) XR HAND LT COMPLETE XR WRIST LT COMPLETE EXAM: XR HAND LT COMPLETE and XR wrist LT complete CLINICAL HISTORY: l hand pain. TECHNIQUE: 2D digital imaging was performed of the left wrist and hand. Six views were obtained. A P, lateral and oblique views were obtained. COMPARISON: No priors for comparison. FINDINGS: BONES: No acute fracture is present. No bony destructive lesion is seen. JOINTS: No dislocation present. The joint spaces are well maintained. SOFT TISSUE: Normal. IMPRESSION: Unremarkable radiographs of the left wrist and hand. DATA REPOSITORY: RADIATION DOSE DELIVERED:
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
[2024-01-27] MEDS: Ibuprofen 600 MG TAB PO (08:22)
== END 2024-01-27 08:44 | disposition home or self-care (01) ==
PROVIDERS: Emergency Provider Emergency Medicine
DX: S60.222A Contusion of left hand, initial encounter (principal); V28.49XA Other motorcycle driver injured in noncollision transport accident in traffic accident, initial encounter
CPT/HCPCS: 99284; 73110; 73130; 99283

== ENCOUNTER 2024-03-25 01:50 | Outpatient (CLI) | payer OTHER, SELFPAY ==
--- NOTE | 2024-03-25 06:15 | DI.MRI_ITS ---
Exam(s) MR UPPER JOINT RT WO EXAM: MR UPPER JOINT RT WO CLINICAL HISTORY: pain and decreased ROM,impingement syndrome rt shoulder,m75.41 TECHNIQUE: Multiplanar multisequence MRI of the shoulder was performed. COMPARISON: CR XR SHOULDER RT COMPLETE 2+V from 12/11/2023 CR XR WRIST LT COMPLETE from 01/27/2024 FINDINGS: MARROW:There is no evidence of fracture, Hill-Sachs deformity, nor ominous osseous lesions. GLENOHUMERAL JOINT: No joint effusion nor obvious loose intra-articular bodies. No chondral defects. No osteophytes. No degenerative subarticular cysts. ROTATOR CUFF MECHANISM: AC JOINT/ACROMIUM: There are some degenerative changes in the AC joint.. There is also some intraoss eous edema on the clavicular side of the joint. No downgoing osteophytes and no enthesophyte evident at the level of the coracoacromial ligament. There is no evidence of os acromiale. Supraspinatus: Intact. Minimal signal abnormality in the tendon. No evidence of tear nor muscle atr ophy. Infraspinatus: Intact. No evidence of tear nor muscle atrophy. Teres Minor: Intact. No evidence of tear nor muscle atrophy. Subscapularis/anterior cuff: Intact. No abnormal signal at the level of the multipennate insertional fibers. No significant tear nor atrophy. BICEPS TENDON: Exhibits normal position within the intertubercular groove. No evidence of tear. No tenosynovitis. LABRUM: There is signal abnormality in the superior labrum posterior to the biceps insertion site, co nsistent with SLAP-type tear. Posterior labrum is intact. Anterior labrum is deficient superiorly-p ossibly related to the SLAP tear.. The anterior inferior labrum appears unremarkable and there is no disruption of the anterior inferior labrum and capsule and IGL complex to suggest the presence of a B ankart lesion. QUADRILATERAL SPACE: No evidence of mass in the region of the axillary nerve and dorsal circumflex hu meral vessels. Visualized triceps muscle at this level appears unremarkable. IMPRESSION: 1. There is a SLAP-type tear of the superior glenoid labrum. Biceps tendon is intact and nondisplaced . 2. No evidence of significant rotator cuff tear. 3. There is some degenerative change in the AC joint with reactive edema in the distal 3rd of the cla vicle adjacent to the AC joint. DATA REPOSITORY:
--- NOTE | 2024-03-25 14:31 | DI.VRAD_ITS ---
PROCEDURE INFORMATION: Exam: MR Right Upper Extremity Joint Without Contrast; Shoulder Exam date and time: 03/25/2024 7:52 AM Age: 33 years old Clinical indication: Pain; Shoulder; Right TECHNIQUE: Imaging protocol: Magnetic resonance imaging of the right upper extremity without contrast. Exam focused on the shoulder. COMPARISON: CR XR SHOULDER RT COMPLETE 2+V 12/11/2023 8:51 AM FINDINGS: Bones/joints: Minimal acromioclavicular degenerative arthritis. Reactive marrow edema in the distal clavicle. Glenoid labrum: Complex SLAP tear of the superior glenoid labrum Supraspinatus tendon: Unremarkable. No evidence of tear. Infraspinatus tendon: Unremarkable. No evidence of tear. Subscapularis tendon: Unremarkable. No evidence of tear. Teres minor tendon: Unremarkable. No evidence of tear. Tendon of biceps brachii: Unremarkable. No evidence of tear. Glenohumeral ligaments: Unremarkable. Soft tissues: Unremarkable. IMPRESSION: 1. Complex SLAP tear of the superior glenoid labrum 2. Acromioclavicular degenerative arthritis with reactive edema in the distal clavicle Dictated and Authenticated by: Alice Tinoco MD. Ordering:DENNIS Moore MD
== END 2024-03-25 02:10 ==
PROVIDERS: Visit Provider Nurse Practitioner Family
DX: S43.431A Superior glenoid labrum lesion of right shoulder, initial encounter (principal); X58.XXXA Exposure to other specified factors, initial encounter
CPT/HCPCS: 73221

== ENCOUNTER 2024-06-28 07:46 | Emergency (ER) | payer OTHER, SELFPAY ==
--- NOTE | 2024-06-28 07:45 | DI.RAD_ITS ---
Exam(s) XR FOOT LT COMPLETE EXAM: XR FOOT LT COMPLETE CLINICAL HISTORY: lateral foot pain, eval fx. TECHNIQUE: 2D digital imaging was performed of the left foot. Three images were obtained. AP, obli que and lateral views were obtained. COMPARISON: No exams were available for comparison FINDINGS: BONES: No acute fracture is present. No bony destructive lesion is seen. JOINTS: No dislocation present. SOFT TISSUE: Normal. No radiopaque foreign bodies or soft tissue gas is appreciated. IMPRESSION: No acute fracture or dislocation. DATA REPOSITORY: RADIATION DOSE DELIVERED:
[2024-06-28 07:55] VITALS: BP 174/95; PULSE 87; RESP 16; TEMP 36.3; O2SAT 97
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
== END 2024-06-28 09:13 | disposition home or self-care (01) ==
PROVIDERS: Emergency Provider Emergency Medicine
DX: S93.602A Unspecified sprain of left foot, initial encounter (principal); F17.210 Nicotine dependence, cigarettes, uncomplicated; X58.XXXA Exposure to other specified factors, initial encounter
CPT/HCPCS: 29515; 99283; 73630

== ENCOUNTER 2024-10-12 11:44 | Outpatient (CLI) | payer OTHER, SELFPAY ==
--- NOTE | 2024-10-12 11:30 | RT.EKG_ITS ---
APPROVED REPORT Exam: Resting ECG Reason for Exam: chest discomfort Patient Location: O HR:67 bpm ECG Measurements Heart Rate 67 AXIS ID 110 P -7 QRSd 93 QRS 58 QT 402 T 37 QTc 425 Conclusion Sinus rhythm...normal P axis, V-rate 50- 99 Borderline short ID interval...ID int <120mS Otherwise normal ECG
== END 2024-10-12 11:45 | disposition home or self-care (01) ==
LOC: DI.CM 11:45
PROVIDERS: Visit Provider Nurse Practitioner Family
DX: R07.89 Other chest pain (principal)
CPT/HCPCS: 93010

== ENCOUNTER 2025-03-25 16:09 | Emergency (ER) | payer SELFPAY ==
[2025-03-25] VITALS (18 sets, daily range): BP systolic 103–121; BP diastolic 65–78; PULSE 70–104; RESP 12–24; O2SAT 93–100
--- NOTE | 2025-03-25 16:00 | RT.EKG_ITS ---
APPROVED REPORT Exam: Resting ECG Reason for Exam: LOC Patient Location: E HR:89 bpm ECG Measurements Heart Rate 89 AXIS NH 140 P 51 QRSd 93 QRS 52 QT 341 T 22 QTc 415 Conclusion Sinus rhythm, rate 89 No interval abnormalities No STEMI No significant changes from priors other than normalization of the NH interval
[2025-03-25 16:34] LABS: Abs Immature Grans 0.14 10^3/uL (0.0-0.06); HCT 44.8 % (40.0-50.0); HGB 15.4 g/dL (13.5-17.5); Immature Grans % 0.8 %; MCH 31.4 pg (27.0-33.0); MCHC 34.4 % (32.0-36.0); MCV 91 fL (80-95); MPV 9.2 fL (8.0-11.0); Platelet Count 327 10^3/uL (130-400); RBC 4.90 10^6/uL (4.36-5.78); RDW 11.8 % (11.8-14.1); RDW-SD 39.3 fL; WBC 17.02 10^3/uL (4.4-10.8)
[2025-03-25] MEDS: Ketorolac 15 MG/ML VIAL IVP (16:43)
[2025-03-25] MEDS: Ondansetron 4 MG/2 ML VIAL IVP (16:43)
[2025-03-25] MEDS: Lactated Ringers 1,000 ML 1000 ML IV (16:43)
--- NOTE | 2025-03-25 16:46 | ED.GENADUL_ITS ---
Discharge Plan Disposition Patient Disposition: Home Condition: Stable Discharge Details Clinical Impression: Episode of syncope, Gastroenteritis, Elevated transaminase level Primary Care Provider: Ector Scott ED Provider: Vani López Home Meds and New Rx's Prescriptions: No Action ibuprofen 600 mg tablet 600 mg PO Q8H PRN escitalopram oxalate 10 mg tablet 10 mg PO DAILY Qty: 60 0RF acetaminophen [Tylenol Extra Strength] 500 mg tablet 1,000 mg PO TID PRN PRN (Reason: pain) Qty: 1 0RF escitalopram oxalate [Lexapro] 10 mg tablet 10 mg PO DAILY Qty: 30 0RF Discharge Instructions Instructions: Syncope (Fainting) (DC) Additional Instructions: You were seen in the emergency department today for evaluation after a fainting episode. In our department you do full physical examination performed, had laboratory studies performed that showed an elevation in your white blood cell count, as well as a very slight elevation in your liver enzymes. There were no other abnormalities that require treatment today. You did receive IV fluids, and had improvement in your symptoms. You had a reassuring EKG and we monitored your cardiac rhythm and did not note any abnormal rhythms. The abnormalities in your laboratory studies could be due to the recent stomach virus that you are experiencing, a syndrome known as gastroenteritis. It is also possible that your liver enzymes could have been elevated in the setting of your historical al cohol use, your primary care provider will want to recheck these laboratory studies to ensure that they are improving once you are well. Please maintain good hydration and nutrition, use caution when transitioning from sitting to standing to avoid dizziness and fainting, and please follow-up with your primary care provider in the next few days to discuss this visit and any symptoms that change, worsen, or persist. Thank you for allowing us to be part of your care. Stand Alone Forms: Portal Information Discharge Data Discharge Date/Time-TO BE ENTERED AT DEPARTURE: 03/25/25 17:44 HPI General Mode of arrival: ambulatory . Date/Time Provider Initiated Documentation: 03/25/25 16:19 . Limitations to Documentation: no limitations . Information obtained by: patient, family and old records reviewed . HPI Narrative: This is a 34-year-old male patient with a past medical history significant for depression and anxiety, alcohol use disorder improved over the last several months with decreased intake, history of diverticulosis, presenting for evaluation after a syncopal episode. The patient was waiting in diagnostic imaging for his fiyonathane, who was getting an ultrasound of her knee performed, when he began to have some cramping in his abdomen, had tunnel vision and nausea, and experienced a loss of consciousness. The patient states that he was caught by something else in the area, did not injure himself or strike his head. He reports that he was unconscious for a few seconds per bystander report, no reported seizure-like activity. The patient states that this has happened 1 other time in his life, during a tattoo appointment. He reports that this was in the setting of not having eaten breakfast. Today, the patient reports that he has only had an energy drink, has not had any other food or water today. He states that he did not experience any vertigo, chest pain. The patient's family has recently been ill with a stomach bug, and he feels that he is starting to get it. He reports recent decrease in his alcohol intake over the past several months in an attempt to be healthier. No family history of early cardiac disease or sudden cardiac . Related Data Home Medications Medication Instructions Recorded Confirmed acetaminophen 500 mg tablet 1,000 mg (2 x 500 mg) PO T ID PRN 04/22/24 02/01/25 (Tylenol Extra Strength) PRN pain #1 tab ibuprofen 600 mg tablet 600 mg PO Q8H PRN 06/16/24 0 02/01/25 escitalopram oxalate 10 mg tablet 10 mg PO DAILY #60 t abs 02/01/25 02/01/25 escitalopram oxalate 10 mg tablet 10 mg PO DAILY #30 t abs 02/12/25 (Lexapro) Previous Rx's Medication Instructions Recorded acetaminophen 500 mg tablet 1,000 mg (2 x 500 mg) PO T ID PRN 04/22/24 (Tylenol Extra Strength) PRN pain #1 tab escitalopram oxalate 10 mg tablet 10 mg PO DAILY #60 t abs 02/01/25 escitalopram oxalate 10 mg tablet 10 mg PO DAILY #30 t abs 02/12/25 (Lexapro) Allergies Allergy/AdvReac Type Severity Reaction Status Date / Time monosodium glutamate AdvReac Mild runny nose Unverified 02/01/25 18:19 General Stated Complaint: AMS/LOC SUSI: 3 Exam Narrative Exam Narrative: Gen: Awake and alert, in no apparent distress HEENT: Non-icteric sclera Neck: Supple Lungs: No apparent respiratory distress, normal respiratory effort. Lung sounds clear and equal bilaterally CV: Appears well perfused, heart with regular rate and rhythm, no murmurs, rubs, gallops Abdomen: Non-distended, soft, minimal tenderness to palpation in the right side without rigidity, rebound, or guarding MSK: Moves 4 extremities without apparent limitation in ROM Skin: Visualized skin without rashes, cyanosis. Neuro: Normal Gait, symmetrical face, no strength or sensation deficits, speaks in full, clear sentences. Psych: Appropriate for situation. Course Vital Signs Vital signs: Vital Signs Pulse 92 H 03/25/25 16:14 Respiratory Rate 20 03/25/25 16:14 Blood Pressure 108/65 03/25/25 16:14 Pulse Oximetry 95 03/25/25 16:14 Pulse 92 H 03/25/25 16:28 Respiratory Rate 20 03/25/25 16:28 Respiratory Effort Normal 03/25/25 16:28 Respiratory Depth Normal 03/25/25 16:28 Respiratory Pattern Normal 03/25/25 16:28 Blood Pressure 108/65 03/25/25 16:28 Blood Pressure Position Sitting 03/25/25 16:28 Pulse Oximetry 95 03/25/25 16:28 Oxygen Delivery Method Room Air 03/25/25 16:28 Oxygen Flow Rate 0 03/25/25 16:28 Lab/Test Results Lab/Test Results: Laboratory Tests Range/Units 03/25/25 16:25 WBC (4.4-10.8) 10^3/uL 17.02 H RBC (4.36-5.78) 10^6/uL 4.90 Hgb (13.5-17.5) g/dL 15.4 Hct (40.0-50.0) % 44.8 MCV (80-95) fL 91 MCH (27.0-33.0) pg 31.4 MCHC (32.0-36.0) % 34.4 RDW (11.8-14.1) % 11.8 Plt Count (130-400) 10^3/uL 327 MPV (8.0-11.0) fL 9.2 Immature Gran % % 0.8 Neutrophils % % 77.5 Lymphocytes % % 13.8 Monocytes % % 6.3 Eosinophils % % 1.2 Basophils % % 0.4 Nucleated RBC % (0.0-0.3) % 0.0 Absolute Neutrophils (1.2-6.7) 10^3/uL 13.19 H Absolute Lymphocytes (1.2-3.4) 10^3/uL 2.35 Absolute Monocytes (0.1-0.8) 10^3/uL 1.07 H Absolute Eosinophils (0.0-0.7) 10^3/uL 0.20 Absolute Basophils (0.0-0.2) 10^3/uL 0.07 Medical Decision Making This is a 34-year-old male patient presenting for evaluation after syncopal episode. My differential includes but is not limited to orthostasis, vasovagal syncope, certainly considered hypoglycemia, dehydration, metabolic and electrolyte derangement, kidney injury. Considered decreased volume status in the setting of his recent gastrointestinal illness. The patient has no chest pain to suggest ACS, I certainly considered arrhythmia. The patient does not have any chest pain or shortness of breath to suggest pulmonary embolism and meets PERC criteria for rule out. No injuries sustained during this event, no reported seizure activity, no neurodeficits to suggest stroke or intracranial mass. I obtained an EKG which shows a sinus rhythm without evidence of ischemia, interval abnormality, or ectopy. I will provide the patient with a liter of IV fluids, and obtain labs to include CBC, CMP, magnesium, lipase, and TSH. I will provide him with Toradol and Zofran for initial management of his gastrointestinal symptoms. At this time, given his hemodynamic stability and benign abdominal examination we can hold on advanced imaging. -I reviewed the patient's laboratory studies, which does show leukocytosis to 17 without anemia or thrombocytopenia. Chemistry panel reveals no significant electrolyte derangements, blood glucose 120, no kidney dysfunction. The patient has a very mild transaminitis without evidence of bilirubin or alk phos elevation. Lipase and TSH are within normal limits. I shared the laboratory abnormalities with the patient, and offered CT of the abdomen and pelvis for further diagnostic clarity. The patient reports that he is feeling entirely improved and is desiring to avoid any imaging. The transaminitis was shared with him, the levels are not so high that I am concerned for acute hepatitis, Tylenol ingestion, etc., could be apprenticeship representative of a viral illness in the setting of recent gastroenteritis exposure, versus alcohol exposure. I counseled the patient on good hydration and nutrition, slow transitions from sitting to standing, and at this time, the patient has had a full medical evaluation and is safe for discharge to home. They are hemodynamically stable, ambulatory, and tolerating PO. They are understanding of the follow-up plan and return precautions. They left our facility without incident. Vani López MD [facility] All Active Problems (Updated 03/25/25 @ 17:39 by Vani López MD) Elevated transaminase level (Acute) Gastroenteritis (Acute) Episode of syncope (Chronic) Depression (Chronic) Anxiety (Chronic) Arthritis of right acromioclavicular joint (Acute) SLAP tear of shoulder (Acute) Impingement syndrome of right shoulder region (Acute) Hyperplastic colon polyp (Acute ~04/12/23) Alcohol use disorder (Acute) Marijuana smoker (Acute) Smoker (Acute) Adenomatous colon polyp (Acute) Internal hemorrhoids with complication (Acute) bleeding Diverticular disease of large intestine (Acute) Lees diverticulosis Hiatal hernia with GERD (Acute) 2 cm sliding Esophagitis (Acute) Duodenitis (Acute) Chemical insult, eye (Acute) Surgical History History of esophagogastroduodenoscopy (~04/2023) History of colonoscopy (~04/2023) History of surgery of head Pt reports 10 years old, tick embedded for over 2months requiring surgical intervention for removal, no issues with anesthesia Social History (Updated 02/16/25 @ 11:53 by Magali Luong MA) Smoking/Tobacco Use Status: Current every day Tobacco Type: cigarettes Smoking packs per day: 1 Smoking cigarettes per day: 20.0 Years smoked: 15 Smoking pack- years: 15.00 Quit status: not considering quitting Smoking risk assessment performed?: Yes Alcohol Intake: former Details: has cut back on alcohol since 03/29/23, 2 beers 2 days ago Drug use: Daily Substance use type: marijuana Details: marijuana use this am, smoked 04/12/23, daily user alcohol t-2, beer Adopted: No Caregiver/Support person: No Household members: significant other Housing: apartment Number of Children: 3 Communication Needs: None Education Level: high school Do you need help understanding health information?: Never 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[employer]) Sexually active: Yes Do you think of yourself as: straight/heterosexual Current gender identity: male What is your relationship status?: living with partner How often do you talk on the phone with friends or family?: three or more times per week Do you belong to any clubs or organized social groups?: no Panel score (0-1 are the most socially isolated patients): 2 What type of physical activity do you participate in: walking Frequency: daily Seatbelt use: sometimes Helmet use: Yes Drive intox or ride w/intox 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
[2025-03-25 16:50] LABS: Lipase 31 U/L (<53); Magnesium 1.7 mg/dL (1.6-2.6)
[2025-03-25 16:52] LABS: ALT 63 U/L (10-49); AST 36 U/L (<34); Albumin 4.7 g/dL (3.4-5.0); Alkaline Phosphatase 64 U/L (46-116); Anion Gap 7.7 mmol/L (3-11); BUN 19 mg/dL (9-23); Bilirubin, Total 0.50 mg/dL (0.2-1.2); CO2 25.3 mmol/L (20.0-31.0); Calcium 8.9 mg/dL (8.3-10.6); Chloride 107 mmol/L (98-107); Glucose 120 mg/dL (74-106); Potassium 4.2 mmol/L (3.5-5.1); Sodium 140 mmol/L (136-145); Total Protein 7.4 g/dL (5.7-8.2)
[2025-03-25 16:54] LABS: TSH (W/Ref FT4) 1.64 uIU/mL (0.55-4.78)
== END 2025-03-25 17:44 | disposition home or self-care (01) ==
PROVIDERS: Emergency Provider Emergency Medicine; PCP Nurse Practitioner Family
DX: R55 Syncope and collapse (principal); K52.9 Noninfective gastroenteritis and colitis, unspecified; R74.01 Elevation of levels of liver transaminase levels
CPT/HCPCS: 36415; 80053; 83690; 93005; 96361; 96374; 96375; 99284; 83735; 84443; 85025; 93010; J1885; J2405

== ENCOUNTER 2025-03-31 13:38 | Outpatient (CLI) | payer SELFPAY ==
[2025-03-31 13:35] LABS: Hemoglobin A1C 5.2 % (<5.7)
[2025-03-31 14:26] LABS: Cholesterol 125 mg/dL (<200); HDL Cholesterol 48 mg/dL (>40)
== END 2025-03-31 13:39 | disposition home or self-care (01) ==
LOC: LBO 13:40
PROVIDERS: PCP Nurse Practitioner Family; Visit Provider Nurse Practitioner Family
DX: Z13.1 Encounter for screening for diabetes mellitus (principal); Z13.220 Encounter for screening for lipoid disorders
CPT/HCPCS: 36415; 80061; 83036